=== PATIENT | female | born 1950 | race Caucasian/White ===

== ENCOUNTER 2017-12-21 15:07 | Observation (INO) | payer OTHER ==
[~2017-12-21] VITALS: Ht 177.8 cm; Wt 95.0 kg
[2017-12-21 15:59] LABS: BASOPHIL (%) 0.5 % (0-1); EOSINOPHIL (%) 1.6 % (0-5); EOSINOPHIL COUNT 0.1 K/uL (0-0.3); HEMATOCRIT 39.2 % (36.0-46.0); HEMOGLOBIN 12.7 G/DL (11.9-15.5); IMMATURE GRANULOCYTE (%) 0.3 % (0.0-0.7); LYMPHOCYTE (%) 35.6 % (15-42); LYMPHOCYTE COUNT 2.2 K/uL (1.0-2.8); MCH 29.3 PG (29.0-34.0); MCHC 32.4 G/DL (30.0-36.0); MCV 90.5 FL (83-99); MONOCYTE (%) 6.8 % (3-12); MONOCYTE COUNT 0.4 K/uL (0-0.8); NEUTROPHIL (%) 55.2 % (45-76); NEUTROPHIL COUNT 3.4 K/uL (1.8-6.4); PLATELET COUNT 229 K/uL (156-360); RBC DIS.WIDTH-CV 12.7 % (11.8-14.6); RBC DIS.WIDTH-SD 41.8 % (39-53); RED BLOOD COUNT 4.33 M/uL (3.80-5.20); WHITE BLOOD COUNT 6.2 K/uL (4.1-10.2)
[2017-12-21 16:07] LABS: PTT 28.1 SEC (25-37)
[2017-12-21 16:09] LABS: CHLORIDE 108 mEq/L (99-109); POTASSIUM 3.8 mEq/L (3.7-5.4); SODIUM 142 mEq/L (136-147)
[2017-12-21 16:10] LABS: GLUCOSE 110 mg/dL (70-99)
[2017-12-21 16:14] LABS: CREATININE 0.7 mg/dL (0.6-1.3); GFR ESTIMATE (CALCULATED) > 59 mL/min/
[2017-12-21 16:15] LABS: UREA NITROGEN (BUN) 9 mg/dL (9-23)
[2017-12-21] MEDS ORDERED: ADVIL200 MG PO (16:29)
[2017-12-21] MEDS ORDERED: VITAMIN D-3 401 EACH PO (16:30)
[2017-12-21] MEDS ORDERED: ECHINACEA EXTR125 MG PO (16:30)
[2017-12-21] MEDS ORDERED: RED YEAST RICE600 M1 PO (16:31)
[2017-12-21 16:36] LABS: HDL CHOLESTEROL 33 MG/DL (Desirable>=50); LDL CHOLESTEROL 120 mg/dL (Desirable<100); NON-HDL CHOLESTEROL 174 mg/dL (Desirable<160); TOTAL CHOLESTEROL 207 mg/dL (Desirable<200); TRIGLYCERIDES 272 MG/DL (Normal: <150)
[2017-12-21 21:51] VITALS: BP 143/65
[2017-12-22 04:47] VITALS: BP 108/51
[2017-12-22 06:00] LABS: CHLORIDE 109 MEQ/L (99-109); CREATININE 0.6 MG/DL (0.6-1.3); GFR ESTIMATE (CALCULATED) > 59 mL/min/; SODIUM 142 MEQ/L (136-147); UREA NITROGEN (BUN) 7 mg/dL (9-23)
[2017-12-22 06:08] LABS: GLUCOSE 79 mg/dL (70-99)
[2017-12-22 07:14] VITALS: BP 120/59
[2017-12-22 07:25] LABS: BASOPHIL (%) 0.5 % (0-1); EOSINOPHIL (%) 3.1 % (0-5); EOSINOPHIL COUNT 0.2 K/uL (0-0.3); HEMATOCRIT 38.1 % (36.0-46.0); HEMOGLOBIN 12.1 G/DL (11.9-15.5); IMMATURE GRANULOCYTE (%) 0.3 % (0.0-0.7); LYMPHOCYTE (%) 39.3 % (15-42); LYMPHOCYTE COUNT 2.4 K/uL (1.0-2.8); MCH 28.9 PG (29.0-34.0); MCHC 31.8 G/DL (30.0-36.0); MCV 90.9 FL (83-99); MONOCYTE (%) 8.8 % (3-12); MONOCYTE COUNT 0.5 K/uL (0-0.8); PLATELET COUNT 214 K/uL (156-360); RBC DIS.WIDTH-CV 12.8 % (11.8-14.6); RBC DIS.WIDTH-SD 42.3 % (39-53); RED BLOOD COUNT 4.19 M/uL (3.80-5.20); WHITE BLOOD COUNT 6.1 K/uL (4.1-10.2)
[2017-12-22 11:39] VITALS: BP 124/68
[2017-12-23 09:15] LABS: HEMOGLOBIN A1c (GLYCOHEMOGLOB) 5.4 % (Below 5.7)
== END 2017-12-22 13:46 | disposition home or self-care (01) ==
LOC: EME 15:07 → EDOF 20:44 → 4SOUTH 20:44 → EDOF 20:44 → ENRESERV 20:50 → 4SOUTH 21:46
PROVIDERS: Emergency Medicine; Internal Medicine
DX: G45.9 Transient cerebral ischemic attack, unspecified (principal); E78.5 Hyperlipidemia, unspecified; M19.90 Unspecified osteoarthritis, unspecified site; E04.1 Nontoxic single thyroid nodule; Z90.710 Acquired absence of both cervix and uterus; Z82.49 Family history of ischemic heart disease and other diseases of the circulatory system; Z88.0 Allergy status to penicillin; Z88.2 Allergy status to sulfonamides; Z88.5 Allergy status to narcotic agent; Z88.6 Allergy status to analgesic agent
CPT/HCPCS: 70450; 70496; 70498; 70551; 80047; 80048; 80061; 83036; 85025; 85610; 85730; 92523 GN; 93005; 93306; 99281; 99285; G0378; J1644